=== PATIENT | female | born 1950 | race Caucasian/White ===

== ENCOUNTER 2016-06-29 14:16 | Emergency (ER) | payer BC ==
--- NOTE | 2016-06-29 14:34 | EDM.PDOC ---
ED HPI GENERAL MEDICAL PROBLEM - General Time Seen by Provider: 06/29/16 14:21 Source of Information: Reports: Patient History Limitations: Reports: No Limitations - History of Present Illness INITIAL COMMENTS - FREE TEXT/NARRATIVE: Patient presents with headache that she noticed as fairly mild when she awoke at 0730 and gradually escalated, to the worst headache she has had in the last 2.5 years, by 0900 this morning. She says it was 20/10 and improved during ambulance ride to ER. Currently she rates it at 6/10 and located at the top of her head. She had a terrible right-sided headache with neck pain 2.5 years ago and was found to have "an old brain bleed" on CT at that time. Since then she has been worried whenever she gets a bad headache. She had an MRI once since then that was okay. She denies vomiting, weakness, balance problems or vision changes. - Related Data Allergies Allergy/AdvReac Type Severity Reaction Status Date / Time iodine Allergy Severe Anaphylactic Verified 07/25/15 02:07 Shock tetracycline [Tetracycline] Allergy Intermediate Rash Verified 07/25/15 02:07 Home Meds: Home Meds ClonazePAM [KlonoPIN] 1 mg PO BID 05/20/13 [History] Levothyroxine 137 mcg PO DAILY 05/20/13 [History] Calcium Carbonate 500 mg PO DAILY 10/07/13 [History] Cholecalciferol (Vitamin D3) [Vitamin D3] 400 unit PO DAILY 10/07/13 [History] Multivitamin [Tab A Ena] 1 tab PO DAILY 10/07/13 [History] Docusate Sodium [Colace] 100 mg PO BID PRN 06/29/16 [History] Lisinopril [Lisinopril] 20 mg PO DAILY 06/29/16 [History] Vortioxetine Hydrobromide [Trintellix] 20 mg PO DAILY 06/29/16 [History] atorvaSTATin Calcium [Atorvastatin Calcium] 20 mg PO DAILY 06/29/16 [History] diphenhydrAMINE [Benadryl] 75 mg PO BEDTIME 06/29/16 [History] Past Medical History HEENT History: Reports: Impaired Vision Gastrointestinal History: Reports: Chronic Constipation, GERD Neurological History: Reports: Other (See Below) Other 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 Psychiatric History: Reports: Anxiety, Depression, Panic Attack Endocrine/Metabolic History: Reports: Hypothyroidism - Infectious Disease History Infectious Disease History: Reports: Chicken Pox, Influenza, Measles, Mumps - Past Surgical History HEENT Surgical History: Reports: Adenoidectomy, Tonsillectomy, Other (See Below) Female Surgical History: Reports: Hysterectomy, Salpingo-Oophorectomy Social & Family History - Family History Family Medical History: Noncontributory - Tobacco Use Smoking Status *Q: Never Smoker Second Hand Smoke Exposure: No - Alcohol Use Days Per Week of Alcohol Use: 0 Number of Drinks Per Day: 0 Total Drinks Per Week: 0 - Recreational Drug Use Recreational Drug Use: No Drug Use in Last 12 Months: No ED ROS GENERAL - Review of Systems Review Of Systems: See Below Constitutional: Denies: Fever, Chills, Diaphoresis HEENT: Denies: Ear Pain, Throat Pain, Vision Change Respiratory: Denies: Shortness of Breath, Cough Cardiovascular: Denies: Chest Pain, Edema, Lightheadedness, Syncope GI/Abdominal: Denies: Abdominal Pain, Vomiting : Denies: Dysuria Musculoskeletal: Denies: Neck Pain, Shoulder Pain, Arm Pain, Back Pain Skin: Denies: Cyanosis, Jaundice, Mottled, Pallor, Diaphoresis Neurological: Reports: Headache. Denies: Confusion, Dizziness, Seizure, Syncope , Trouble Speaking Psychiatric: Denies: Agitation, Anxiety, Confusion - Physical Exam Exam: See Below Exam Limited By: No Limitations General Appearance: Alert, WD/WN, No Apparent Distress Eye Exam: Bilateral Eye: EOMI, Normal Inspection, PERRL Ears: Normal External Exam, Hearing Grossly Normal Nose: Normal Inspection, Normal Mucosa Throat/Mouth: Normal Lips, Normal Voice, No Airway Compromise Head Exam: Atraumatic, Normocephalic Neck: Supple, Full Range of Motion, Tender Lateral (right posterior muscular) Respiratory/Chest: No Respiratory Distress, Lungs Clear, Normal Breath Sounds Cardiovascular: Normal Peripheral Pulses, Regular Rate, Rhythm, No Murmur GI/Abdominal: Soft, Non-Tender, No Organomegaly, No Distention Neuro Exam (Abbreviated): Alert, Oriented, CN II-XII Intact, Normal Cognition, No Motor/Sensory Deficits Extremities: Normal Inspection, Non-Tender, No Pedal Edema, Other (no asymmetry or weakness) Psychiatric: Normal Affect, Normal Mood Skin Exam: Warm, Dry, Intact, Normal Color, No Rash Course - Orders/Labs/Meds Orders: Active Orders 24 hr Category Date Time Status Head wo Cont [CT] Routine Exams 06/29/16 Ordered - Re-Assessments/Exams Free Text/Narrative Re-Assessment/Exam: 06/29/16 15:28 Patient stable. Headache improving and now 3/10. Labs good. Awaiting CT results. 06/29/16 16:54 Patient remained stable throughout ER course and rates headache at 1/[address] shows no acute changes or bleed. Discussed findings with patient and advised follow up with her neurologist with the more frequent headaches. She hasn't seen him for two years and agrees to this. Departure - Departure Time of Disposition: 16:59 Disposition: Home, Self-Care 01 Condition: good Clinical Impression: Headache Qualifiers: Headache type: unspecified Headache chronicity pattern: acute headache Intractability: not intractable Qualified Code(s): R51 - Headache - Discharge Information Additional Instructions: 1. Drink 6-8 cups of water daily. 2. Follow up with the neurologist soon if possible. 3. Recheck with your PCP if unable to get in with neurologist in next two weeks. - My Orders Last 24 Hours: My Active Orders 06/29/16 Head wo Cont [CT] Routine - Assessment/Plan Last 24 Hours: My Active Orders 06/29/16 Head wo Cont [CT] Routine
[2016-06-29 15:48] VITALS: BP 142/54
== END 2016-06-29 17:10 | disposition home or self-care (01) ==
LOC: KA.ED 14:16
DX: R51 Headache (principal); Z86.79 Personal history of other diseases of the circulatory system; K21.9 Gastro-esophageal reflux disease without esophagitis; F41.9 Anxiety disorder, unspecified; F32.9 Major depressive disorder, single episode, unspecified; E03.9 Hypothyroidism, unspecified; Z79.899 Other long term (current) drug therapy; Z88.8 Allergy status to other drugs, medicaments and biological substances
CPT/HCPCS: 70450; 80048; 85025; 85610; 85730; 99284

== ENCOUNTER 2018-03-09 12:00 | Emergency (ER) | payer MEDICARE, OTHER ==
[2018-03-09 12:15] VITALS: BP 152/47
[2018-03-09] MEDS ORDERED: Sodium Chloride 0.9% 10 ML Syringe FLUSH PRN (12:16)
[2018-03-09 12:49] LABS: ANION GAP 16.3 mmol/L (5-15); CHLORIDE,CL 104 mmol/L (98-115); SODIUM,NA 143 mmol/L (136-145)
--- NOTE | 2018-03-09 12:53 | EDM.PDOC ---
ED HPI GENERAL MEDICAL PROBLEM - General Chief Complaint: Headache Stated Complaint: Headache Time Seen by Provider: 03/09/18 12:25 Source of Information: Reports: Patient History Limitations: Reports: No Limitations - History of Present Illness INITIAL COMMENTS - FREE TEXT/NARRATIVE: 67 YO WF presents to ER complaining of right sided headache which began yesterday. Pt reports she spend the day in bed and took her migraine medicine but when she woke this am she still had her headache with some blurred vision prompting her ER visit. Pt with history of craniotomy 4 years ago due to concern for a brain tumor. The neurosurgeon told the patient that there was no tumor but an area of old blood that was cleaned out and removed. Pt has had migraine headache since that time. Pt denies any weakness/numbness, no change in speech, no facial droop, or ataxia. Pt is alert and oriented x 4 with a GCS of 15. Pt currently rates her pain as 3/10. Pt denies any recent illness, no fever/chills or nausea/vomiting. Onset Date: 03/08/18 Duration: Day(s): (2) Location: Reports: Head Quality: Reports: Ache Severity: Moderate Improves with: Reports: None Worsens with: Reports: None Associated Symptoms: Reports: No Other Symptoms, Headaches. Denies: Fever/ Chills, Nausea/Vomiting, Seizure, Syncope, Weakness Headache Pain Score (Numeric/FACES): 3 - Related Data Allergies Allergy/AdvReac Type Severity Reaction Status Date / Time iodine Allergy Severe Anaphylactic Verified 03/09/18 12:14 Shock tetracycline [Tetracycline] Allergy Intermediate Rash Verified 03/09/18 12:14 Home Meds: Home Meds Multivitamin [Tab A Ena] 1 tab PO DAILY 10/07/13 [History] Docusate Sodium [Colace] 100 mg PO BID PRN 06/29/16 [History] Vortioxetine Hydrobromide [Trintellix] 20 mg PO DAILY 06/29/16 [History] atorvaSTATin Calcium [Atorvastatin Calcium] 20 mg PO DAILY 06/29/16 [History] Calcium Citrate/Vitamin D3 [Calcium Citrate - Vit D3 Tab] 1 tab PO DAILY [History] Levothyroxine 112 mcg PO DAILY 03/09/18 [History] Lisinopril 40 mg PO DAILY 03/09/18 [History] Non-Formulary Medication [NF Drug] 13.5 mg PO DAILY@1300 03/09/18 [History] OLANZapine [Olanzapine] 5 mg PO BEDTIME 03/09/18 [History] Rizatriptan Benzoate [Rizatriptan] 10 - 20 mg PO ASDIRECTED PRN 03/09/18 [ History] amLODIPine Besylate [Amlodipine Besylate] 5 mg PO DAILY 03/09/18 [History] clonazePAM [Klonopin] 0.5 - 1 mg PO DAILY 03/09/18 [History] Past Medical History HEENT History: Reports: Impaired Vision Cardiovascular History: Reports: High Cholesterol, Hypertension Gastrointestinal History: Reports: Chronic Constipation, GERD Genitourinary History: Reports: Urinary Incontinence, Other (See Below) Other Genitourinary History: cystocele NURSE CLINICIAN History: Reports: Musculoskeletal History: Reports: None Neurological History: Reports: Other (See Below) Other 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 Psychiatric History: Reports: Anxiety, Depression, Panic Attack Endocrine/Metabolic History: Reports: Hypothyroidism Hematologic History: Reports: None - Infectious Disease History Infectious Disease History: Reports: Chicken Pox, Influenza, Measles, Mumps - Past Surgical History Head Surgeries/Procedures: Reports: Craniotomy HEENT Surgical History: Reports: Adenoidectomy, Tonsillectomy, Other (See Below) Cardiovascular Surgical History: Reports: None Female Surgical History: Reports: Hysterectomy, Salpingo-Oophorectomy Musculoskeletal Surgical History: Reports: Other (See Below) Other Musculoskeletal Surgeries/Procedures:: right index finger Social & Family History - Family History Family Medical History: Noncontributory - Caffeine Use Caffeine Use: Reports: Soda, Tea ED ROS GENERAL - Review of Systems Review Of Systems: See Below Constitutional: Reports: No Symptoms HEENT: Reports: No Symptoms Respiratory: Reports: No Symptoms Cardiovascular: Reports: No Symptoms Endocrine: Reports: No Symptoms GI/Abdominal: Reports: No Symptoms : Reports: No Symptoms Musculoskeletal: Reports: No Symptoms Skin: Reports: No Symptoms Neurological: Reports: Headache. Denies: Dizziness, Numbness, Paresthesia, Syncope, Trouble Speaking, Difficulty Walking, Weakness, Change in Speech Psychiatric: Reports: No Symptoms Hematologic/Lymphatic: Reports: No Symptoms Immunologic: Reports: No Symptoms - Physical Exam Exam: See Below Exam Limited By: No Limitations General Appearance: Alert, WD/WN, No Apparent Distress Eye Exam: Bilateral Eye: EOMI, PERRL Ears: Normal External Exam, Normal Canal, Hearing Grossly Normal, Normal TMs Nose: Normal Inspection, Normal Mucosa, No Blood Throat/Mouth: Normal Inspection, Normal Lips, Normal Teeth, Normal Gums, Normal Oropharynx, Normal Voice, No Airway Compromise Head Exam: Atraumatic, Normocephalic Neck: Normal Inspection, Supple, Non-Tender, Full Range of Motion Respiratory/Chest: No Respiratory Distress, Lungs Clear, Normal Breath Sounds, No Accessory Muscle Use, Chest Non-Tender Cardiovascular: Normal Peripheral Pulses, Regular Rate, Rhythm, No Edema, No Gallop, No JVD, No Murmur, No Rub GI/Abdominal: Normal Bowel Sounds, Soft, Non-Tender, No Organomegaly, No Distention, No Abnormal Bruit, No Mass Neuro Exam (Abbreviated): Alert, Oriented, CN II-XII Intact, Normal Cognition, Normal Gait, Normal Reflexes, No Motor/Sensory Deficits Back Exam: Normal Inspection, Full Range of Motion, NT Extremities: Normal Inspection, Normal Range of Motion, Non-Tender, No Pedal Edema, Normal Capillary Refill Psychiatric: Normal Affect, Normal Mood Skin Exam: Warm, Dry, Intact, Normal Color, No Rash Course - Vital Signs Last Recorded V/S: Last Vital Signs Temp 37.0 C 03/09/18 12:08 Pulse 69 03/09/18 12:08 Resp 19 03/09/18 12:08 BP 152/47 H 03/09/18 12:08 Pulse Ox 97 03/09/18 12:08 - Orders/Labs/Meds Orders: Active Orders 24 hr Category Date Time Status Peripheral IV Care [RC] . DIRECTED Care 03/09/18 12:16 Active Sodium Chloride 0.9% [Saline Flush] Med 03/09/18 12:16 Active 10 ml FLUSH Q8HR PRN Peripheral IV Insertion Adult [OM.PC] Routine Oth 03/09/18 12:16 Ordered Medication Orders Sodium Chloride (Saline Flush) 10 ml FLUSH Q8HR PRN PRN Reason: keep vein open Labs: Laboratory Tests 03/09/18 03/09/18 03/09/18 Range/Units 12:20 12:20 12:20 WBC 5.59 (5.00-10.00) 10^3/uL RBC 4.80 (3.80-5.50) 10^6/uL Hgb 13.4 (12.0-16.0) g/dL Hct 40.2 (37.0-47.0) % MCV 83.8 (82.0-92.0) fL MCH 27.9 (27.0-31.0) pg MCHC 33.3 (32.0-36.0) g/dL RDW 13.7 (11.5-14.5) % Plt Count 228 (150-400) 10^3/uL MPV 9.4 (7.4-10.4) fL Immature Gran % (Auto) 0.2 (0.0-5.0) % Neut % (Auto) 64.2 (50.0-70.0) % Lymph % (Auto) 28.8 (20.0-40.0) % Woodson % (Auto) 4.8 (2.0-8.0) % Eos % (Auto) 1.8 (1.0-3.0) % Baso % (Auto) 0.2 (0.0-1.0) % Immature Gran # (Auto) 0.01 (0.00-0.50) 10^3/uL Neut # (Auto) 3.59 (2.50-7.00) 10^3/uL Lymph # (Auto) 1.61 (1.00-4.00) 10^3/uL Woodson # (Auto) 0.27 (0.10-0.80) 10^3/uL Eos # (Auto) 0.10 (0.10-0.30) 10^3/uL Baso # (Auto) 0.01 (0.00-0.10) 10^3/uL PT 9.9 (8.9-11.4) SEC INR 1.0 (0.9-1.1) APTT 25.0 (20.8-31.2) SEC Sodium 143 (136-145) mmol/L Potassium 3.7 (3.3-5.3) mmol/L Chloride 104 (98-115) mmol/L Carbon Dioxide 26.4 (21.0-32.0) mmol/L Anion Gap 16.3 H (5-15) mmol/L BUN 14 (6-25) mg/dL Creatinine 0.79 (0.51-1.17) mg/dL Est Cr Clr Drug Dosing 66.46 mL/min Estimated GFR (MDRD) > 60 mL/min Glucose 156 H (75 - 99) mg/dL Calcium 8.4 L (8.7-10.3) mg/dL Meds: Medications Generic Name Dose Route Start Last Admin Trade Name Freq PRN Reason Stop Dose Admin Sodium Chloride 10 ml 03/09/18 12:16 Saline Flush FLUSH Q8HR PRN keep vein open - Radiology Interpretation Free Text/Narrative:: CT Head- subacute ischemia in the right temporal occipital region without hemorrhagic conversion - Re-Assessments/Exams Free Text/Narrative Re-Assessment/Exam: 03/09/18 14:20 visual acuity- 20/40 both eyes bp- 146/54 P-64 rr-19 SaO2- 96% RA Departure - Departure Time of Disposition: 14:41 Disposition: DC/Tfer to Acute Hospital 02 Condition: Serious Clinical Impression: Ischemic stroke - Discharge Information Referrals: Augustus Lorenz PA-C [Primary Care Provider] - Forms: ED Department Discharge, Interfacility Transfer EMTALA - My Orders Last 24 Hours: My Active Orders 03/09/18 12:16 Peripheral IV Care [RC] . DIRECTED Sodium Chloride 0.9% [Saline Flush] 10 ml FLUSH Q8HR PRN Peripheral IV Insertion Adult [OM.PC] Routine - Assessment/Plan Last 24 Hours: My Active Orders 03/09/18 12:16 Peripheral IV Care [RC] . DIRECTED Sodium Chloride 0.9% [Saline Flush] 10 ml FLUSH Q8HR PRN Peripheral IV Insertion Adult [OM.PC] Routine Assessment:: 1. Right sided headache 2. right temporal occipital region with subacute ischemia Plan: 1. Discussed with Stroke Neurology [facility]- Dr Amaro who recommended MRI Brain and will see in ER in [facility]. Dr Hancock ER physician accepting 2. No stroke protocol at this time per Dr Amaro 3. supportive care 4. transfer by ground due to weather conditions
--- NOTE | 2018-03-09 14:07 | CT ---
[id number] CT/CT Head WO IV EXAM: CT Head WO IV CLINICAL DATA: HEADACHE WITH VISUAL CHANGES. COMPARISON STUDY: June 2016. FINDINGS: Focal area of hypodensity in the right parietotemporal region resulting in obscuration of hall-white matter differentiation, consistent with an area of subacute ischemia. There is sulcal effacement secondary to evolving parenchymal edema. No evidence of hemorrhagic conversion. Findings are superimposed on changes of chronic small vessel disease, similar to examination 2017. Right frontal lobe encephalomalacia, similar to the prior examination as well. Craniotomy defect is stable. Paranasal sinuses and mastoid air cells are clear. IMPRESSION: Subacute ischemia in the right temporal occipital region without hemorrhagic conversion. Francisco Webster MD 03/09/18 [id number] Thank you for allowing us to participate in the care of your patient.
== END 2018-03-09 15:10 ==
LOC: KA.ED 12:00
DX: I63.9 Cerebral infarction, unspecified (principal); E78.00 Pure hypercholesterolemia, unspecified; I10 Essential (primary) hypertension; F41.9 Anxiety disorder, unspecified; F32.9 Major depressive disorder, single episode, unspecified; E03.9 Hypothyroidism, unspecified; Z79.899 Other long term (current) drug therapy
CPT/HCPCS: 36415; 70450; 80048; 85025; 85610; 85730; 99283; 99285

== ENCOUNTER 2023-12-24 07:02 | Day surgery (SDC) | payer MEDICARE, OTHER ==
[~2023-12-24 07:02] MED LIST: Sodium Chloride 0.9% 10 ML Syringe FLUSH PRN
[2023-12-24] MEDS ORDERED: Propofol 200 MG/20 ML SDV IV ONE (07:03)
[2023-12-24] MEDS: Lactated Ringers 1,000 ML IV SCH (07:35)
[2023-12-24] MEDS ORDERED: Midazolam 1 MG/ML 2 ML SDV ONE (07:59)
[2023-12-24] MEDS ORDERED: Propofol 200 MG/20 ML SDV ONE ×2 (07:59→08:43)
[2023-12-24] MEDS ORDERED: Lidocaine 2% 100 MG/5 ML Syringe ONE (08:00)
[2023-12-24] MEDS ORDERED: Glycopyrrolate 0.2 MG/ML SDV ONE (08:00)
[2023-12-24 13:50] VITALS: BP 139/68; PULSE 61
== END 2023-12-24 10:45 | disposition home or self-care (01) ==
LOC: KA.SDS 07:02
PROVIDERS: ATTEND Family Medicine
DX: Z12.11 Encounter for screening for malignant neoplasm of colon (principal); K64.4 Residual hemorrhoidal skin tags; I10 Essential (primary) hypertension; E03.9 Hypothyroidism, unspecified; K21.9 Gastro-esophageal reflux disease without esophagitis; E83.51 Hypocalcemia; G47.33 Obstructive sleep apnea (adult) (pediatric); Z80.0 Family history of malignant neoplasm of digestive organs; Z88.8 Allergy status to other drugs, medicaments and biological substances; Z79.82 Long term (current) use of aspirin; Z79.899 Other long term (current) drug therapy; Z79.890 Hormone replacement therapy
CPT/HCPCS: 43235; G0121; J1596; J2250; J2704; J7120; J3490